=== PATIENT | female | born 1965 | race Caucasian/White ===

== ENCOUNTER 2023-03-07 07:14 | Outpatient (RCR) | payer BC, SELFPAY | END 2023-03-07 23:59 | disposition home or self-care (01) | LOC: RPT 07:14 | PROVIDERS: ATTENDING PHYSICIAN Internal Medicine Gastroenterology; PRIMARYCARE PHYSICIAN Physician Assistant Medical | DX: K59.00 Constipation, unspecified (principal); N94.10 Unspecified dyspareunia; M62.89 Other specified disorders of muscle; N39.3 Stress incontinence (female) (male); Z73.6 Limitation of activities due to disability | CPT/HCPCS: 97110; 97140; 97530 ==

== ENCOUNTER 2023-04-02 13:21 | Outpatient (RCR) | payer BC, SELFPAY | END 2023-04-02 23:59 | disposition home or self-care (01) | LOC: RPT 13:21 | PROVIDERS: ATTENDING PHYSICIAN Internal Medicine Gastroenterology; PRIMARYCARE PHYSICIAN Physician Assistant Medical | DX: K59.00 Constipation, unspecified (principal); N94.10 Unspecified dyspareunia; M62.89 Other specified disorders of muscle; N39.3 Stress incontinence (female) (male); Z73.6 Limitation of activities due to disability | CPT/HCPCS: 97140; 97530 ==

== ENCOUNTER → 2023-08-12 06:26 | Day surgery (SDC) | payer BC, SELFPAY | LOC: GI 06:26 | PROVIDERS: ATTENDING PHYSICIAN Internal Medicine Gastroenterology; FAMILY PHYSICIAN Physician Assistant Medical | DX: R10.13 Epigastric pain (principal); K44.9 Diaphragmatic hernia without obstruction or gangrene; K31.89 Other diseases of stomach and duodenum; K29.50 Unspecified chronic gastritis without bleeding | CPT/HCPCS: 43239; 88305; 88342 ==

== ENCOUNTER → 2023-09-16 07:27 | Outpatient (REF) | payer BC, SELFPAY | LOC: HWRAD 07:27 | PROVIDERS: ATTENDING PHYSICIAN Physician Assistant; FAMILY PHYSICIAN Physician Assistant Medical | DX: R10.11 Right upper quadrant pain (principal) | CPT/HCPCS: 76700 ==

== ENCOUNTER → 2023-10-24 07:55 | Outpatient (REF) | payer BC, SELFPAY | LOC: RAD 07:55 | PROVIDERS: ATTENDING PHYSICIAN Physician Assistant; FAMILY PHYSICIAN Physician Assistant Medical | DX: R11.0 Nausea (principal) | CPT/HCPCS: 78264; A9541 ==

== ENCOUNTER → 2024-02-11 08:26 | Outpatient (REF) | payer BC, SELFPAY | LOC: HWRAD 08:26 | PROVIDERS: ATTENDING PHYSICIAN Physician Assistant; FAMILY PHYSICIAN Physician Assistant Medical | DX: R10.31 Right lower quadrant pain (principal) | CPT/HCPCS: 76830; 76856 ==

== ENCOUNTER → 2024-09-16 09:35 | Outpatient (REF) | payer BC, SELFPAY | LOC: RAD 09:35 | PROVIDERS: ATTENDING PHYSICIAN Physician Assistant; FAMILY PHYSICIAN Physician Assistant Medical | DX: K59.00 Constipation, unspecified (principal) | CPT/HCPCS: 74018 ==

== ENCOUNTER → 2024-12-30 14:20 | Outpatient (REF) | payer BC, SELFPAY | LOC: RAD 14:20 | PROVIDERS: ATTENDING PHYSICIAN Physician Assistant Medical | DX: M79.661 Pain in right lower leg (principal) | CPT/HCPCS: 93971 ==

== ENCOUNTER → 2025-02-04 11:13 | Outpatient (REF) | payer BC, SELFPAY | LOC: RAD 11:13 | PROVIDERS: ATTENDING PHYSICIAN Physician Assistant Medical | DX: M79.661 Pain in right lower leg (principal); R10.20 Pelvic and perineal pain unspecified side | CPT/HCPCS: 76830; 76856 ==